=== PATIENT | male | born 1990 | race Hispanic/Latino ===

== ENCOUNTER 2018-11-29 15:10 | Emergency (ER) | payer BC ==
[2018-11-29] MEDS ORDERED: ONDANSETRON ODT 4 MG TAB ONE (15:36)
[2018-11-29] MEDS ORDERED: KETOROLAC TROMETHAMINE 60 MG/2 ML VIAL ONE (15:36)
[2018-11-29] MEDS ORDERED: CYCLOBENZAPRINE HCL 10 MG TABLET ONE (15:36)
== END 2018-11-29 16:57 | disposition home or self-care (01) ==
LOC: EDH 15:10
DX: M54.5 Low back pain (principal); Z72.0 Tobacco use
CPT/HCPCS: 72131; 96372; 99284; J1885